=== PATIENT | female | born 1950 | race Asian ===

== ENCOUNTER 2019-11-09 08:07 | Day surgery (SDC) | payer OTHER | END 2019-11-09 09:45 | disposition home or self-care (01) | LOC: OR 08:07 | PROC: 3E0R33Z Introduction of Anti-inflammatory into Spinal Canal, Percutaneous Approach (ICD-10-PCS; principal; 2019-11-09) | PROC: B01BYZZ Fluoroscopy of Spinal Cord using Other Contrast (ICD-10-PCS; 2019-11-09) | DX: M50.123 Cervical disc disorder at C6-C7 level with radiculopathy (principal) | CPT/HCPCS: J1020 ==

== ENCOUNTER 2020-03-07 08:21 | Day surgery (SDC) | payer OTHER | END 2020-03-07 09:58 | disposition home or self-care (01) | LOC: OR 08:21 | PROC: 3E0R33Z Introduction of Anti-inflammatory into Spinal Canal, Percutaneous Approach (ICD-10-PCS; principal; 2020-03-07) | PROC: B01BYZZ Fluoroscopy of Spinal Cord using Other Contrast (ICD-10-PCS; 2020-03-07) | DX: M50.123 Cervical disc disorder at C6-C7 level with radiculopathy (principal) ==

== ENCOUNTER 2020-04-27 10:24 | Outpatient (CLI) | payer OTHER | END 2020-04-27 21:50 | disposition home or self-care (01) | LOC: RAD 10:24 | DX: M25.511 Pain in right shoulder (principal) ==

== ENCOUNTER 2020-05-10 08:11 | Outpatient (CLI) | payer OTHER | END 2020-05-10 21:58 | disposition home or self-care (01) | LOC: MRI 08:11 | DX: M25.511 Pain in right shoulder (principal); M19.011 Primary osteoarthritis, right shoulder ==